=== PATIENT | female | born 1950 | race Caucasian/White ===

== ENCOUNTER → 2019-12-01 12:23 | Outpatient (CLI) | payer MEDICARE, BC, SELFPAY ==
--- NOTE | 2019-12-01 12:28 | MRI_ITS ---
STUDY: MRI LUMBAR SPINE WITHOUT CONTRAST REASON FOR EXAM: Female, 69 years old. LBP, LEFT leg numbness, anterior left cadet pain TECHNIQUE: Standardized fat and water weighted pulse sequences were obtained in the sagittal and axial planes. COMPARISON: None FINDINGS: Exaggerated lumbar lordosis. No significant scoliosis. Conus medullaris terminates normally at the L1 level. No acute fracture. No acute dislocation. No acute bone destruction. Paraspinal muscle atrophy. Normal aorta. Normal retroperitoneum. Sacrum intact. T12-L1: Normal endplates. Normal disc height, hydration and morphology. Normal bilateral facet joints. Normal central canal and bilateral lateral recesses. Normal bilateral intervertebral neural foramina. L1-2: Normal endplates. Mild disc desiccation. Normal bilateral facet joints. Normal central canal and bilateral lateral recesses. Normal bilateral intervertebral neural foramina. L2-3: Normal endplates. Mild disc desiccation. Normal bilateral facet joints. Normal central canal and bilateral lateral recesses. Normal bilateral intervertebral neural foramina. L3-4: Normal endplates. Shallow disc bulge. Facet joint arthrosis. Normal central canal and bilateral lateral recesses. Minimal neural foraminal narrowing. L4-5: Moderate endplate spondylosis. Disc bulge/uncovering with mild/moderate central canal narrowing. Additional left lateral recess and left foraminal extrusion (sagittal image 5 series 2 and axial image 12 series 5). Herniated disc material measures approximately 11 mm x 19 mm x 14 mm. Facet joint arthrosis. Bilateral lateral recess narrowing without impingement. Bilateral neural from narrowing with impingement on the left. L5-S1: Minimal endplate spondylosis. Shallow disc bulge. Facet arthrosis. Normal central canal and bilateral lateral recesses. Normal bilateral intervertebral neural foramina. MRI/Spine Lumbar (Routine) IMPRESSION: Multilevel intervertebral disc disease with left lateral recess/foraminal extrusion at the L4-5 level Multilevel neural foraminal narrowing with impingement of the left exiting L4 nerve root Left lateral recess narrowing at L4-5 with impingement of the left descending L5 nerve root Exaggerated lumbar lordosis with grade 1 spondylolisthesis at L4-5 Multilevel endplate spondylosis and facet joint arthrosis predominating at L4-5 Electronically Signed: Zion Rivers DO at 14:13 EDT Tel , Service support ,
== END ==
PROVIDERS: PCP Internal Medicine; Referring Provider Anesthesiology Pain Medicine; Visit Provider Anesthesiology Pain Medicine
DX: M54.9 Dorsalgia, unspecified (principal); M79.606 Pain in leg, unspecified
CPT/HCPCS: 72148

== ENCOUNTER → 2024-05-20 | Outpatient (CLI) | payer MEDICARE, BC, SELFPAY ==
--- NOTE | 2024-05-20 12:16 | CT_ITS ---
STUDY: CT CHEST WITH T WITHOUT CONTRAST REASON FOR EXAM: Female, 73 years old. R06.09 - Other forms of dyspnea limited chest over read only RADIATION DOSAGE (If Supplied By Facility): CTDIvol = ( 24.81 ) mGy, DLP = ( 1169.72 ) mGycm TECHNIQUE: Transaxial imaging was performed pre-and post contrast administration of IV 55mL [id number]. Cardiac over read examination. Individualized dose optimization techniques were used for this CT. COMPARISON: None. FINDINGS: Findings suggest a mild linear atelectasis and/or scarring at the lung bases. There is no demonstrated pleural abnormality. Normal heart and pericardium. Coronary artery calcification is seen. Normal mediastinum. Normal hilar regions. Normal enhanced and unenhanced pulmonary arteries. Normal aorta arch and descending thoracic aorta. Normal osseous structures. There is no demonstrated abnormality of the visualized upper abdomen. CT/Limited Chest CT Cardiac Only IMPRESSION: Coronary artery calcification. Electronically Signed: Esvin Baron MD at 15:25 EST ,
[2024-05-20 12:47] VITALS: BP 143/71; PULSE 68; RESP 16; O2SAT 97; BMI 25.0
[2024-05-20 13:12] LABS: CREATININE FINGERSTICK < 1.0 mg/dL (0.55-1.02)
[2024-05-20 13:13] VITALS: PULSE 67
[2024-05-20] MEDS: Nitroglycerin SL (ED/IMG/CATH) 0.4 MG TABLET SL (13:13)
[2024-05-20 13:20] VITALS: BP 125/64; PULSE 70; RESP 16; O2SAT 96
--- NOTE | 2024-05-20 17:43 | CCTA.WCONT ---
CCTA w/Cont Coronary Arteries Date of Study:: 05/20/24 Chest pain Coronary Calcium Scoring: High-resolution Computed Tomographic imaging of the chest was performed on [05/20/2024], with particular attention paid to the coronary arteries. Intravenous contrast agent was administered per protocol and images reconstructed and displayed. LEFT MAIN CORONARY ARTERY: This arose from the left coronary cusp and bifurcating to left anterior descending artery left circumflex artery. No significant stenosis was present. Coronary calcium score of 0. [] LEFT ANTERIOR DESCENDING CORONARY ARTERY: This arose from the left main coronary artery. There was extensive calcification noted in the proximal and mid segments in the distal segment appeared to be normal. There was at least moderate stenosis noted in the mid left anterior descending artery. Coronary calcium score was 592 [] LEFT CIRCUMFLEX CORONARY ARTERY: This was a nondominant vessel arising from the left main coronary artery with mild plaquing and mild calcification present no high-grade stenosis noted. Coronary calcium score is 30. [] RIGHT CORONARY ARTERY: Dominant right coronary artery with mild calcification noted proximally mild atherosclerotic plaquing and soft plaquing noted with coronary calcium score of 8. [] CORONARY CALCIUM SCORE: Total Agatston score of 630 placing between 75th and 90th percentile. Conclusion: Coronary CT angio with at least moderate stenosis noted of the mid left anterior descending artery with elevated coronary calcium score
== END | disposition home or self-care (01) ==
LOC: CT 12:16
PROVIDERS: PCP Internal Medicine; Referring Provider Internal Medicine Cardiovascular Disease; Visit Provider Internal Medicine Cardiovascular Disease
DX: R06.09 Other forms of dyspnea (principal); R53.83 Other fatigue; I10 Essential (primary) hypertension; R94.39 Abnormal result of other cardiovascular function study
CPT/HCPCS: 75571; 75574; 76380; Q9967

== ENCOUNTER → 2024-07-20 | Outpatient (CLI) | payer MEDICARE, BC, SELFPAY ==
[2024-07-20 16:37] LABS: Cholesterol 134 mg/dL (200); High Density Lipoprotein 69 mg/dL; Triglycerides 56 mg/dL; Very Low Density Lipoprotein 11 mg/dL (5-40)
== END | disposition home or self-care (01) ==
LOC: LAB 15:32
PROVIDERS: PCP Internal Medicine; Referring Provider Physician Assistant Medical; Visit Provider Physician Assistant Medical
DX: E78.5 Hyperlipidemia, unspecified (principal)
CPT/HCPCS: 36415; 80061